=== PATIENT | male | born 1955 | race Caucasian/White ===

== ENCOUNTER → 2019-05-24 | Outpatient (CLI) | payer OTHER ==
[~2019-05-24] MED LIST: ADULT LOW DOSE81 MG PO; MULTIVITAMINS PO; PRINZIDE 20-121 EACH PO; PROTONIX 20 MG20 M1 PO
== END ==
LOC: CAT 09:17
DX: Z13.6 Encounter for screening for cardiovascular disorders (principal); E78.00 Pure hypercholesterolemia, unspecified; I25.10 Atherosclerotic heart disease of native coronary artery without angina pectoris